=== PATIENT | female | born 1985 | race Caucasian/White ===

== ENCOUNTER 2019-11-02 16:37 | Outpatient (CLI) | payer BC, SELFPAY ==
[2019-11-02 17:22] LABS: Abs Immature Grans 0.03 k/cumm (0.0-0.09); Absolute Basophil Count 0.02 k/cumm (0.0-0.2); Absolute Eosinophil Count 0.06 k/cumm (0.0-0.7); Absolute Lymphocyte Count 2.68 k/cumm (1.2-3.4); Absolute Monocyte Count 0.62 k/cumm (0.11-0.7); Absolute Neutrophil Count 6.88 k/cumm (1.2-6.7); Basophils % 0.2; Eosinophils % 0.6; HCT 36.6 % (36.0-46.0); HGB 12.6 g/dL (12.0-15.5); Immature Grans % 0.3 %; Mean Corp. HGB Concentration 34.4 g/dL (32.0-36.0); Mean Corpuscular Hemoglobin 27.9 pg (27.0-33.0); Mean Corpuscular Volume 81.2 fL (80-95); Mean Platelet Volume 9.5 fL (8.0-11.0); Neutrophils % 66.9; Platelet Count 261 x1000/uL (130-400); RBC 4.51 m/cumm (4.00-5.20); RBC Distribution Width 13.2 % (11.7-14.6); White Blood Cell Count 10.29 k/cumm (4.4-10.8)
[2019-11-02 18:57] LABS: TSH (W/Ref FT4) 1.05 uIU/mL (0.36-3.74)
[2019-11-02 20:06] LABS: *AMPHETAMINES SCREEN URINE Negative (Negative); *BARBITURATES SCREEN URINE Negative (Negative); *BENZODIAZEPINES SCREEN URINE Negative (Negative); Cannabinoids THC Negative (Negative); Cocaine Screen,Urine Negative (Negative); METHADONE URINE SCREEN Negative (Negative); OPIATES URINE SCREEN Negative (Negative)
[2019-11-02 20:09] LABS: Tricyclic Antidepressants Negative (Negative)
[2019-11-04 10:07] LABS: HIV-1/2 Ag & Ab Screen Negative (Negative); Hepatitis B Surface Ag Negative (Negative)
[2019-11-04 10:11] LABS: Hepatitis C Ab w Rflx HCV PCR Negative (Negative)
[2019-11-04 12:55] LABS: Rubella IgG Ab (UVM) Positive (See Note); Syphilis Serology (RPR) Negative (Negative); Varicella IgG Antibody Positive (See Note)
[2019-11-04 13:19] LABS: Chlamydia Result Negative (Negative); GC Result Negative (Negative)
[2019-11-07 11:53] LABS: Buprenorphine Negative; Norbuprenorphine Negative
== END 2019-11-02 16:57 ==
PROVIDERS: PCP Nurse Practitioner Family; Visit Provider Advanced Practice Midwife
DX: Z34.91 Encounter for supervision of normal pregnancy, unspecified, first trimester (principal); Z11.4 Encounter for screening for human immunodeficiency virus [HIV]; Z11.59 Encounter for screening for other viral diseases; Z11.3 Encounter for screening for infections with a predominantly sexual mode of transmission
CPT/HCPCS: 36415; 80055; 80307; 86787; 86803; 86850; 86900; 86901; 87340; 87389; 87491; 87591; 84443; 86592; 86762; 87086

== ENCOUNTER 2019-11-29 10:31 | Outpatient (CLI) | payer BC, SELFPAY ==
[2019-11-29 11:09] LABS: Kit/Specimen SENT
[2019-12-01 12:11] LABS: AFP 35.7 ng/mL; Calculated age at EDD 32 years; Cigarette smoking status non-Smoker; GA used in risk estimate Dates estimate; IVF Pregnancy No; Initial or repeat testing Initial testing; Insulin dependent diabetes No; Maternal Weight 162 lbs; Number of Fetuses 1; Physician Phone Number 802-748-7300; Prev Pregnancy w/NTD No; RECOMMENDED FOLLOW UP None.; Results Summary Normal risk
[2019-12-02 17:32] LABS: Specimen WB Whole Blood
[2019-12-06 09:55] LABS: Result Summary NEGATIVE; Specimen WB Whole Blood
== END 2019-11-29 10:51 ==
PROVIDERS: Advanced Practice Midwife; PCP Nurse Practitioner Family; Visit Provider Advanced Practice Midwife
DX: Z34.92 Encounter for supervision of normal pregnancy, unspecified, second trimester (principal); Z13.79 Encounter for other screening for genetic and chromosomal anomalies
CPT/HCPCS: 36415; 81329; 81220; 82105; 83655

== ENCOUNTER 2019-12-28 01:30 | Outpatient (CLI) | payer BC, SELFPAY ==
--- NOTE | 2019-12-28 14:15 | DI.US_ITS ---
EXAM: US OB 2-3 TRIMESTER CLINICAL HISTORY: . TECHNIQUE: Transabdominal obstetrical ultrasound performed. COMPARISON: No exams were available for comparison FINDINGS: There is a single living intrauterine gestation. Estimated gestational age is 20 weeks 3 days. The fetus was in various positions during the examination. heart rate is 147 beats per minute. Amniotic fluid appears within normal limits visually. No or placental abnormalities are identified. IMPRESSION: 1. Single live intrauterine gestation as above. 2. Normal anatomic survey. DATA REPOSITORY:
== END 2019-12-28 01:50 ==
PROVIDERS: PCP Nurse Practitioner Family; Visit Provider Advanced Practice Midwife
DX: Z34.92 Encounter for supervision of normal pregnancy, unspecified, second trimester (principal); Z3A.20 20 weeks gestation of pregnancy
CPT/HCPCS: 76805

== ENCOUNTER 2020-02-28 11:40 | Outpatient (CLI) | payer BC, SELFPAY ==
[2020-02-28 12:16] LABS: HCT 34.9 % (36.0-46.0); Mean Corp. HGB Concentration 34.4 g/dL (32.0-36.0); Mean Corpuscular Volume 84.3 fL (80-95); Mean Platelet Volume 9.4 fL (8.0-11.0); Platelet Count 239 x1000/uL (130-400); RBC 4.14 m/cumm (4.00-5.20); RBC Distribution Width 13.1 % (11.7-14.6); White Blood Cell Count 12.14 k/cumm (4.4-10.8)
[2020-02-28 12:26] LABS: Glucose,1 Hr (Glucola) 87 mg/dL (80-140)
== END 2020-02-28 12:00 ==
PROVIDERS: Advanced Practice Midwife; PCP Nurse Practitioner Family; Visit Provider Advanced Practice Midwife
DX: Z3A.28 28 weeks gestation of pregnancy (principal); Z34.93 Encounter for supervision of normal pregnancy, unspecified, third trimester
CPT/HCPCS: 82950; 85027; 86850; 90384

== ENCOUNTER 2020-04-25 15:59 | Outpatient (REF) | payer BC, SELFPAY ==
[2020-04-25 17:11] LABS: *AMPHETAMINES SCREEN URINE Negative (Negative); *BARBITURATES SCREEN URINE Negative (Negative); *BENZODIAZEPINES SCREEN URINE Negative (Negative); Cannabinoids THC Negative (Negative); Cocaine Screen,Urine Negative (Negative); METHADONE URINE SCREEN Negative (Negative); OPIATES URINE SCREEN Negative (Negative)
[2020-04-25 17:12] LABS: Tricyclic Antidepressants Negative (Negative)
[2020-05-02 10:37] LABS: Buprenorphine Negative
== END 2020-04-25 16:19 ==
LOC: LBN 15:59
PROVIDERS: PCP Nurse Practitioner Family; Visit Provider Advanced Practice Midwife
DX: Z34.90 Encounter for supervision of normal pregnancy, unspecified, unspecified trimester (principal)
CPT/HCPCS: 80307; 87081

== ENCOUNTER 2020-05-27 17:37 | Inpatient (IN) | payer BC, SELFPAY ==
[2020-05-27 18:50] LABS: Abs Immature Grans 0.15 10^3/uL (0.0-0.06); Basophils % 0.3; Eosinophils % 0.9; HCT 38.4 % (36.0-46.0); HGB 13.3 g/dL (11.2-15.7); Immature Grans % 0.9; Lymphocytes % 14.3; MCH 28.6 pg (27.0-33.0); MCHC 34.6 % (32.0-36.0); MCV 82.6 fL (80-95); MPV 10.6 fL (8.0-11.0); Monocytes % 5.7; Neutrophils % 77.9; Nucleated RBC 0 %; Platelet Count 192 10^3/uL (130-400); RBC 4.65 10^6/uL (3.93-5.22); RDW 12.9 % (11.7-14.6); RDW-SD 38.6 fL; WBC 17.47 10^3/uL (4.4-10.8)
[2020-05-27 18:51] LABS: Absolute Basophil Count 0.05 10^3/uL (0.0-0.2); Absolute Eosinophil Count 0.16 10^3/uL (0.0-0.7); Absolute Neutrophil Count 13.61 10^3/uL (1.2-6.7)
[2020-05-28] MEDS: Normal Saline Flush 10 ML SYR IVP (16:18)
[2020-05-28] MEDS: Lactated Ringers 1,000 ML 125 ML IV (16:45)
[2020-05-28] MEDS: Oxytocin/Normal Saline 30 UNITS/500 ML BAG IV (16:45)
[2020-05-28 20:55] LABS: COVID-19 RT-PCR UVMMC Result Negative (Negative)
[2020-05-29] MEDS: Lidocaine 1% Multi-Dose 20 ML VIAL IJ (01:39)
[2020-05-29] MEDS: Hamamelis Leaf/Glycerin 100 EACH BOX PR (01:39)
[2020-05-29] MEDS: Normal Saline Flush 10 ML SYR IVP (04:53)
[2020-05-29] MEDS: Acetaminophen 325 MG TAB 650 MG PO (09:26)
[2020-05-29] MEDS: Ibuprofen 600 MG TAB PO (09:27)
[2020-05-30 08:17] LABS: HCT 34.6 % (36.0-46.0); HGB 11.5 g/dL (11.2-15.7); MCH 28.1 pg (27.0-33.0); MCHC 33.2 % (32.0-36.0); MCV 84.6 fL (80-95); MPV 10.4 fL (8.0-11.0); Platelet Count 169 10^3/uL (130-400); RBC 4.09 10^6/uL (3.93-5.22); RDW 13.3 % (11.7-14.6)
== END 2020-05-30 08:40 | disposition home or self-care (01) | DRG 807 ==
PROVIDERS: Advanced Practice Midwife; Admitting Provider Advanced Practice Midwife; PCP Nurse Practitioner Family; Visit Provider Advanced Practice Midwife
DX: O62.1 Secondary uterine inertia (principal); Z37.0 Single live birth; O70.0 First degree perineal laceration during delivery; O48.0 Post-term pregnancy; O42.02 Full-term premature rupture of membranes, onset of labor within 24 hours of rupture; Z3A.41 41 weeks gestation of pregnancy; O99.344 Other mental disorders complicating childbirth; F41.9 Anxiety disorder, unspecified; O69.81X0 Labor and delivery complicated by cord around neck, without compression, not applicable or unspecified; O92.29 Other disorders of breast associated with pregnancy and the puerperium; Z11.59 Encounter for screening for other viral diseases
CPT/HCPCS: 36415; 85027; 85461; 86850; 86900; 86901; 90384; U0003; 85025; J2790; J3490

== ENCOUNTER 2021-04-24 09:44 | Outpatient (REF) | payer BC, SELFPAY ==
[2021-04-24 16:15] LABS: Abs Immature Grans 0.03 10^3/uL (0.0-0.06); Absolute Basophil Count 0.05 10^3/uL (0.0-0.2); Absolute Eosinophil Count 0.09 10^3/uL (0.0-0.7); Absolute Lymphocyte Count 2.37 10^3/uL (1.2-3.4); Absolute Monocyte Count 0.51 10^3/uL (0.1-0.8); Absolute Neutrophil Count 4.92 10^3/uL (1.2-6.7); Basophils % 0.6; Eosinophils % 1.1; HCT 41.7 % (36.0-46.0); HGB 13.5 g/dL (11.2-15.7); Immature Grans % 0.4; Lymphocytes % 29.7; MCH 26.8 pg (27.0-33.0); MCHC 32.4 % (32.0-36.0); MCV 82.7 fL (80-95); MPV 10.7 fL (8.0-11.0); Monocytes % 6.4; Neutrophils % 61.8; Nucleated RBC 0 %; Platelet Count 236 10^3/uL (130-400); RBC 5.04 10^6/uL (3.93-5.22); RDW 12.9 % (11.7-14.6); RDW-SD 38.7 fL; WBC 7.97 10^3/uL (4.4-10.8)
[2021-04-24 16:46] LABS: Anion Gap 7.5 mmol/L (3-11); BUN 17 mg/dL (7-18); CO2 27.5 mmol/L (21.0-32.0); CREATININE 0.7 mg/dL (0.55-1.02); Calcium 9.1 mg/dL (8.5-10.1); Chloride 109 mmol/L (98-107); Glucose 90 mg/dL (74-106); Potassium 4.8 mmol/L (3.5-5.1); Sodium 144 mmol/L (136-145); TSH 0.95 uIU/mL (0.36-3.74)
[2021-04-26 13:55] LABS: COVID-19 RT-PCR UVMMC Result Negative (Negative)
== END 2021-04-24 09:45 | disposition home or self-care (01) ==
LOC: NCHCN 09:44
PROVIDERS: PCP Nurse Practitioner Family; Visit Provider Nurse Practitioner Family
DX: R06.02 Shortness of breath (principal); Z20.822 Contact with and (suspected) exposure to COVID-19
CPT/HCPCS: 80048; U0003; 84443; 85025

== ENCOUNTER 2021-04-30 02:43 | Outpatient (CLI) | payer BC, SELFPAY ==
--- NOTE | 2021-04-30 | DI.RAD_ITS ---
Exam(s) XR CHEST 2V PA LATERAL EXAM: XR CHEST 2V PA LATERAL CLINICAL HISTORY: [id number] TECHNIQUE: 2D digital imaging was performed. COMPARISON: No exams were available for comparison FINDINGS: MEDIASTINUM: Normal. HEART: Normal. PULMONARY VASCULATURE: Normal. LUNGS: Clear. PLEURAL SPACE: No pleural effusion or pneumothorax. BONE:Within normal limits for the patient's age. OTHER FINDINGS:Normal. IMPRESSION: No acute pulmonary findings. DATA REPOSITORY: RADIATION DOSE DELIVERED:
== END 2021-04-30 03:03 ==
PROVIDERS: PCP Nurse Practitioner Family; Visit Provider Nurse Practitioner Family
DX: R06.02 Shortness of breath (principal)
CPT/HCPCS: 71046

== ENCOUNTER 2021-05-06 02:57 | Outpatient (CLI) | payer BC, SELFPAY ==
[2021-05-06] MEDS: Methacholine 100 MG VIAL IH (12:16)
[2021-05-06] MEDS: Albuterol HFA 18 GM 200 PUFF INH IH (12:16)
[2021-05-06] MEDS: Inhaler, Assist Device 1 EACH MC (12:17)
--- NOTE | 2021-05-06 13:45 | W.PFT ---
Date of service: 05/06/21 Time of Service: 10:01 Pulmonary Function Test Result Requesting Provider Marcy Monroy Interpretation Spirometry: There is mild airflow limitation at baseline. There was a significant decrease in both FEV1 and FVC after administration of 4 mg/mL of methacholine. There was significant inspiratory loop flattening evidenced in the flow volume loop. Impression Positive methacholine challenge test. Blunting of the inspiratory loop, in the correct clinical setting this could represent vocal cord dysfunction. Note: Recommend treatment for asthma as well as either speech-language pathology or ENT referral for possible vocal cord dysfunction. Clinical Correlation therefore is recommended.
--- NOTE | 2021-05-06 13:55 | W.PFT ---
Date of service: 05/06/21 Time of Service: 10:01 Pulmonary Function Test Result Requesting Provider Marcy Monroy Interpretation Spirometry: There is mild airflow obstruction. Again there is significant blunting of the inspiratory loop concerning for vocal cord dysfunction. Lung Volumes: There is air trapping and hyperinflation. Diffusion Capacity: The diffusion is normal. Airway Pressure: Airway resistance is normal Impression Mild airflow obstruction with evidence of air trapping and hyperinflation with a normal diffusion may represent asthma in the correct clinical setting. There is also significant blunting of the inspiratory loop which may represent vocal cord dysfunction in the appropriate setting. Note: If clinically indicated would recommend treatment for asthma. Would also recommend a referral to either speech-language pathology or ENT for assessment and treatment of potential vocal cord dysfunction. Clinical Correlation therefore is recommended.
== END 2021-05-06 02:58 | disposition home or self-care (01) ==
LOC: RT 02:57
PROVIDERS: PCP Nurse Practitioner Family; Visit Provider Nurse Practitioner Family
DX: R06.02 Shortness of breath (principal); R94.2 Abnormal results of pulmonary function studies
CPT/HCPCS: 94060; 94726; 94729; 95070; 94010; J7674

== ENCOUNTER 2021-12-18 09:31 | Outpatient (REF) | payer BC, SELFPAY ==
[2021-12-18 12:41] LABS: Calculated LDL 84 mg/dL (<100); Cholesterol 139 mg/dL (<200); Glucose 83 mg/dL (74-106); HDL Cholesterol 42 mg/dL (40-60); Triglyceride 65 mg/dL (<150)
== END 2021-12-18 09:32 | disposition home or self-care (01) ==
LOC: NCHCN 09:31
PROVIDERS: PCP Nurse Practitioner Family; Visit Provider Nurse Practitioner Family
DX: Z00.00 Encounter for general adult medical examination without abnormal findings (principal); J45.20 Mild intermittent asthma, uncomplicated
CPT/HCPCS: 80061; 82947